=== PATIENT | female | born 1985 | race American Indian/Alaskan Native ===

== ENCOUNTER 2021-10-22 12:27 | Emergency (ER) | payer OTHER ==
--- NOTE | 2021-10-22 13:08 | Emergency Department Report ---
ED General Adult HPI - General Chief complaint: Recheck/Abnormal Lab/Rx Stated complaint: My doctor sent me here Time Seen by Provider: 10/22/21 12:51 Source: patient, RN notes reviewed Mode of arrival: Ambulatory Limitations: No Limitations - History of Present Illness Initial comments: Primary CARE doctor: Dr. Antonio Lu; [facility] Primary care The patient is a pleasant 36-year-old female who reports no chronic medical conditions, who presents to the ER at the recommendation of her nurse for her primary care doctor. 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 She reports that she had laboratory studies drawn, which demonstrated low blood counts, and she was referred to the emergency room for evaluation and possible blood transfusion. The patient endorses chronic heavy menstruation, for years, and reports that she has no physical pain at this time. She denies hematemesis and bright red blood per rectum. She has mild shortness of breath on exertion for months. The patient denies headache, neck pain, chest pain, abdominal pain, vomiting, diaphoresis, possibility of . She denies posterior leg pain and leg swelling. She has not seen a account manager employee benefits for approximately 3 years. She sees her primary care doctor once a year by her history. During the history and physical examination I am chaperoned by Angelina Nelson -: month(s), year(s) Severity scale (0 -10): 0 Improves with: rest Worsens with: movement - Related Data Previous Rx's Medication Instructions Recorded Last Taken Type Ferrous Sulfate [Iron 325 MG] 325 mg PO TID #90 tab 10/22/21 Unknown Rx Allergies Allergy/AdvReac Type Severity Reaction Status Date / Time No Known Allergies Allergy Verified 10/22/21 12:37 ED Review of Systems ROS: Stated complaint: EMERGENCY BLOOD TRANSFUSION Other details as noted in HPI Constitutional: denies: fever Eyes: denies: eye discharge ENT: denies: congestion Respiratory: shortness of breath Cardiovascular: denies: chest pain Gastrointestinal: denies: abdominal pain, hematemesis, melena, hematochezia Genitourinary: abnormal menses (Heavy menstruation) Neurological: denies: weakness ED Past Medical Hx - Past Medical History Previous Medical History?: No - Surgical History Past Surgical History?: No - Medications Home Medications: Home Medications Medication Instructions Recorded Confirmed Last Taken Type Ferrous Sulfate [Iron 325 MG] 325 mg PO TID #90 tab 10/22/21 Unknown Rx ED Physical Exam - General Limitations: No Limitations General appearance: alert, in no apparent distress - Head Head exam: Present: atraumatic, normocephalic - Eye Eye exam: Present: normal appearance, EOMI, other (There is very mild pallor of the conjunctiva). Absent: nystagmus - ENT ENT exam: Present: normal exam, normal orophraynx, mucous membranes moist, normal external ear exam - Neck Neck exam: Present: normal inspection, full ROM. Absent: tenderness, meningismus - Respiratory Respiratory exam: Present: normal lung sounds bilaterally. Absent: respiratory distress, wheezes, rales, rhonchi, stridor, decreased breath sounds - Cardiovascular Cardiovascular Exam: Present: regular rate, normal rhythm, normal heart sounds. Absent: bradycardia, tachycardia, irregular rhythm, systolic murmur, diastolic murmur, rubs, gallop - GI/Abdominal GI/Abdominal exam: Present: soft. Absent: distended, tenderness, guarding, rebound, rigid, pulsatile mass - Extremities Exam Extremities exam: Present: normal inspection, full ROM, normal capillary refill, other (2+ pulses noted in the bilateral upper and lower extremities. There is no palpable cord. negative Homans sign. Muscular compartments are soft. The pelvis is stable.). Absent: pedal edema, calf tenderness - Back Exam Back exam: Present: normal inspection, full ROM. Absent: tenderness, CVA tenderness (R), CVA tenderness (L), paraspinal tenderness, vertebral tenderness - Neurological Exam Neurological exam: Present: alert, oriented X3, normal gait, other (No facial droop. Tongue midline. Extraocular movements intact bilaterally. Facial sensation intact to light touch in V1, V2, V3 distribution bilaterally. 5 and a 5 strength in 4 extremities. Sensation intact to light touch in 4 extremities.). Absent: motor sensory deficit - Psychiatric Psychiatric exam: Present: normal affect, normal mood - Skin Skin exam: Present: warm, dry, intact, normal color. Absent: rash ED Course Vital Signs 10/22/21 10/22/21 12:41 12:45 Temperature 98.6 F Pulse Rate 78 Respiratory 18 18 Rate Blood Pressure 118/65 [Right] O2 Sat by Pulse 100 100 Oximetry - Reevaluation(s) Reevaluation #1: 10/22/21 13:15 Differential diagnosis, including but not limited to: Iron deficiency anemia, laboratory error, encounter for medical screening examination Assessment and plan: 36-year-old female, who is afebrile, with reassuring vital signs, in no acute distress, hemodynamically stable, ambulatory with a steady gait, presenting to the ER for possible blood transfusion, after having laboratory studies drawn by her primary care doctor, found to demonstrate anemia. The symptoms have been going on for months and for years. The patient is not emergently decompensated at this time. I advised the patient's that we would be happy to check her laboratory studies, and I did further advised the patient that if she required and requested, we would be happy to provide a packed red blood cell transfusion, but I also advised the patient that given duration of symptoms, and lack of emergent medical decompensation at this time, it would be reasonable to consider alternative therapies, including iron sulfate supplementation, iron infusion, and outpatient follow-up. The patient is agreeable at this time, we will obtain appropriate laboratory studies, EKG, and reassess. Patient has also provided consent to discuss the details of her care with her primary care physician. 10/22/21 14:09 Laboratory studies demonstrate microcytic anemia, normal coagulation profile, negative test as expected. Have revisited discussion with patient. Through shared decision making, and patient articulated preference, patient prefers to not have packed red blood cell transfusion at this time which I think is reasonable. Start iron sulfate supplementation, discussed diet lifestyle modifications, will need to follow-up with outpatient hematology to consider/pursue outpatient iron infusions, should also follow-up with an outpatient SCREEN MACHINE OPERATOR physician for history of heavy menstruation. As a courtesy and as per the patient's request, we will discussed with her primary care doctor, Dr. Antonio Lu Reevaluation #2: 10/22/21 14:17 I discussed the patient's history, physical, laboratory studies and clinical impression with her primary care doctor, Dr. Lu He is in agreement with the plan of care, and endorsed understanding. He also reports that his group typically coordinate with a gallery or museum technician by the name of Dr. Silverman, his office will reach out to this gallery or museum technician. s Reevaluation #3: 10/22/21 14:50 Renal and hepatic tests unremarkable. Iron studies suggestive of iron deficiency anemia. Patient reliable to follow-up as an outpatient. Return precautions reviewed ED Medical Decision Making - Lab Data Result diagrams: 10/22/21 12:49 10/22/21 12:49 Vital Signs 10/22/21 10/22/21 12:41 12:45 Temperature 98.6 F Pulse Rate 78 Respiratory 18 18 Rate Blood Pressure 118/65 [Right] O2 Sat by Pulse 100 100 Oximetry Lab Results 10/22/21 10/22/21 10/22/21 Range/Units 12:49 12:49 12:49 WBC 2.9 L (4.5-11.0) K/mm3 RBC 3.35 L (3.65-5.03) M/mm3 Hgb 5.5 L* (10.1-14.3) gm/dl Hct 19.8 L* (30.3-42.9) % MCV 59 L (79-97) fl MCH 16 L (28-32) pg MCHC 28 L (30-34) % RDW 22.2 H (13.2-15.2) % Plt Count 244 (140-440) K/mm3 Lymph % (Auto) [facility] [place] % (Auto) [facility] Seg Neutrophils % [facility] PT 13.7 (12.2-14.9) Sec. INR 0.95 (0.87-1.13) APTT 25.3 (24.2-36.6) Sec. HCG, Qual Negative (Negative) Blood Type Antibody Screen 10/22/21 Range/Units 12:49 WBC (4.5-11.0) K/mm3 RBC (3.65-5.03) M/mm3 Hgb (10.1-14.3) gm/dl Hct (30.3-42.9) % MCV (79-97) fl MCH (28-32) pg MCHC (30-34) % RDW (13.2-15.2) % Plt Count (140-440) K/mm3 Lymph % (Auto) [place] % (Auto) Seg Neutrophils % PT (12.2-14.9) Sec. INR (0.87-1.13) APTT (24.2-36.6) Sec. HCG, Qual (Negative) Blood Type O POSITIVE Antibody Screen Negative Lab Results 10/22/21 10/22/21 10/22/21 Range/Units 12:49 12:49 12:49 WBC 2.9 L (4.5-11.0) K/mm3 RBC 3.35 L (3.65-5.03) M/mm3 Hgb 5.5 L* (10.1-14.3) gm/dl Hct 19.8 L* (30.3-42.9) % MCV 59 L (79-97) fl MCH 16 L (28-32) pg MCHC 28 L (30-34) % RDW 22.2 H (13.2-15.2) % Plt Count 244 (140-440) K/mm3 Lymph % (Auto) [facility] [facility] [place] % (Auto) [facility] Add Manual Diff Complete Total Counted 100 Seg Neutrophils % [facility] Seg Neuts % (Manual) 42.0 (40.0-70.0) % Band Neutrophils % 0 % Lymphocytes % (Manual) 45.0 H (13.4-35.0) % Reactive Lymphs % (Man) 0 % Monocytes % (Manual) 10.0 H (0.0-7.3) % Eosinophils % (Manual) 1.0 (0.0-4.3) % Basophils % (Manual) 2.0 H (0.0-1.8) % Metamyelocytes % 0 % Myelocytes % 0 % Promyelocytes % 0 % Blast Cells % 0 % Nucleated RBC % Not Reportable Seg Neutrophils # Man 1.2 L (1.8-7.7) K/mm3 Band Neutrophils # 0.0 K/mm3 Lymphocytes # (Manual) 1.3 (1.2-5.4) K/mm3 Abs React Lymphs (Man) 0.0 K/mm3 Monocytes # (Manual) 0.3 (0.0-0.8) K/mm3 Eosinophils # (Manual) 0.0 (0.0-0.4) K/mm3 Basophils # (Manual) 0.1 (0.0-0.1) K/mm3 Metamyelocytes # 0.0 K/mm3 Myelocytes # 0.0 K/mm3 Promyelocytes # 0.0 K/mm3 Blast Cells # 0.0 K/mm3 WBC Morphology Not Reportable Hypersegmented Neuts Not Reportable Hyposegmented Neuts Not Reportable Hypogranular Neuts Not Reportable Smudge Cells Not Reportable Toxic Granulation Not Reportable Toxic Vacuolation Not Reportable Dohle Bodies Not Reportable Pelger-Huet Anomaly Not Reportable Apoorva Rods Not Reportable Platelet Estimate Consistent w auto Clumped Platelets Not Reportable Plt Clumps, EDTA Not Reportable Large Platelets Not Reportable Giant Platelets Not Reportable Platelet Satelliting Not Reportable Plt Morphology Comment Not Reportable RBC Morphology Not Reportable Dimorphic RBCs Not Reportable Polychromasia Not Reportable Hypochromasia 3+ Poikilocytosis 2+ Anisocytosis 1+ Microcytosis 2+ Macrocytosis Not Reportable Spherocytes Not Reportable Pappenheimer Bodies Not Reportable Sickle Cells Not Reportable Target Cells Not Reportable Tear Drop Cells Few Ovalocytes Few Helmet Cells Rare [place] Bodies Not Reportable [place] Not Reportable Suzy Cells 1+ Bite Cells Not Reportable Crenated Cell Not Reportable Elliptocytes Few Acanthocytes (Spur) Not Reportable Rouleaux Not Reportable Hemoglobin C Crystals Not Reportable Schistocytes Rare Malaria parasites Not Reportable Rolan Bodies Not Reportable Hem Pathologist Commnt No PT 13.7 (12.2-14.9) Sec. INR 0.95 (0.87-1.13) APTT 25.3 (24.2-36.6) Sec. Sodium 137 (137-145) mmol/L Potassium 4.4 (3.6-5.0) mmol/L Chloride 103.8 (98-107) mmol/L Carbon Dioxide 21 L (22-30) mmol/L Anion Gap 17 mmol/L BUN 11 (7-17) mg/dL Creatinine 0.6 (0.6-1.2) mg/dL Estimated GFR > 60 ml/min BUN/Creatinine Ratio 18 % Glucose 97 (65-100) mg/dL Calcium 9.1 (8.4-10.2) mg/dL Iron (37-170) ug/dL TIBC (250-450) mcg/dL Ferritin (10.0-200.0) ng/mL Total Bilirubin 0.20 (0.1-1.2) mg/dL AST 15 (5-40) units/L ALT 8 (7-56) units/L Alkaline Phosphatase 53 (35-129) units/L Total Protein 8.2 (6.3-8.2) g/dL Albumin 4.4 (3.9-5) g/dL Albumin/Globulin Ratio 1.2 % HCG, Qual (Negative) Blood Type Antibody Screen 10/22/21 10/22/21 10/22/21 Range/Units 12:49 12:49 12:49 WBC (4.5-11.0) K/mm3 RBC (3.65-5.03) M/mm3 Hgb (10.1-14.3) gm/dl Hct (30.3-42.9) % MCV (79-97) fl MCH (28-32) pg MCHC (30-34) % RDW (13.2-15.2) % Plt Count (140-440) K/mm3 Lymph % (Auto) [place] % (Auto) Add Manual Diff Total Counted Seg Neutrophils % Seg Neuts % (Manual) (40.0-70.0) % Band Neutrophils % % Lymphocytes % (Manual) (13.4-35.0) % Reactive Lymphs % (Man) % Monocytes % (Manual) (0.0-7.3) % Eosinophils % (Manual) (0.0-4.3) % Basophils % (Manual) (0.0-1.8) % Metamyelocytes % % Myelocytes % % Promyelocytes % % Blast Cells % % Nucleated RBC % Seg Neutrophils # Man (1.8-7.7) K/mm3 Band Neutrophils # K/mm3 Lymphocytes # (Manual) (1.2-5.4) K/mm3 Abs React Lymphs (Man) K/mm3 Monocytes # (Manual) (0.0-0.8) K/mm3 Eosinophils # (Manual) (0.0-0.4) K/mm3 Basophils # (Manual) (0.0-0.1) K/mm3 Metamyelocytes # K/mm3 Myelocytes # K/mm3 Promyelocytes # K/mm3 Blast Cells # K/mm3 WBC Morphology Hypersegmented Neuts Hyposegmented Neuts Hypogranular Neuts Smudge Cells Toxic Granulation Toxic Vacuolation Dohle Bodies Pelger-Huet Anomaly Apoorva Rods Platelet Estimate Clumped Platelets Plt Clumps, EDTA Large Platelets Giant Platelets Platelet Satelliting Plt Morphology Comment RBC Morphology Dimorphic RBCs Polychromasia Hypochromasia Poikilocytosis Anisocytosis Microcytosis Macrocytosis Spherocytes Pappenheimer Bodies Sickle Cells Target Cells Tear Drop Cells Ovalocytes Helmet Cells [place] Bodies [place] Suzy Cells Bite Cells Crenated Cell Elliptocytes Acanthocytes (Spur) Rouleaux Hemoglobin C Crystals Schistocytes Malaria parasites Rolan Bodies Hem Pathologist Commnt PT (12.2-14.9) Sec. INR (0.87-1.13) APTT (24.2-36.6) Sec. Sodium (137-145) mmol/L Potassium (3.6-5.0) mmol/L Chloride (98-107) mmol/L Carbon Dioxide (22-30) mmol/L Anion Gap mmol/L BUN (7-17) mg/dL Creatinine (0.6-1.2) mg/dL Estimated GFR ml/min BUN/Creatinine Ratio % Glucose (65-100) mg/dL Calcium (8.4-10.2) mg/dL Iron 10 L (37-170) ug/dL TIBC 404 (250-450) mcg/dL Ferritin (10.0-200.0) ng/mL Total Bilirubin (0.1-1.2) mg/dL AST (5-40) units/L ALT (7-56) units/L Alkaline Phosphatase (35-129) units/L Total Protein (6.3-8.2) g/dL Albumin (3.9-5) g/dL Albumin/Globulin Ratio % HCG, Qual Negative (Negative) Blood Type O POSITIVE Antibody Screen Negative 10/22/21 Range/Units 12:49 WBC (4.5-11.0) K/mm3 RBC (3.65-5.03) M/mm3 Hgb (10.1-14.3) gm/dl Hct (30.3-42.9) % MCV (79-97) fl MCH (28-32) pg MCHC (30-34) % RDW (13.2-15.2) % Plt Count (140-440) K/mm3 Lymph % (Auto) [place] % (Auto) Add Manual Diff Total Counted Seg Neutrophils % Seg Neuts % (Manual) (40.0-70.0) % Band Neutrophils % % Lymphocytes % (Manual) (13.4-35.0) % Reactive Lymphs % (Man) % Monocytes % (Manual) (0.0-7.3) % Eosinophils % (Manual) (0.0-4.3) % Basophils % (Manual) (0.0-1.8) % Metamyelocytes % % Myelocytes % % Promyelocytes % % Blast Cells % % Nucleated RBC % Seg Neutrophils # Man (1.8-7.7) K/mm3 Band Neutrophils # K/mm3 Lymphocytes # (Manual) (1.2-5.4) K/mm3 Abs React Lymphs (Man) K/mm3 Monocytes # (Manual) (0.0-0.8) K/mm3 Eosinophils # (Manual) (0.0-0.4) K/mm3 Basophils # (Manual) (0.0-0.1) K/mm3 Metamyelocytes # K/mm3 Myelocytes # K/mm3 Promyelocytes # K/mm3 Blast Cells # K/mm3 WBC Morphology Hypersegmented Neuts Hyposegmented Neuts Hypogranular Neuts Smudge Cells Toxic Granulation Toxic Vacuolation Dohle Bodies Pelger-Huet Anomaly Apoorva Rods Platelet Estimate Clumped Platelets Plt Clumps, EDTA Large Platelets Giant Platelets Platelet Satelliting Plt Morphology Comment RBC Morphology Dimorphic RBCs Polychromasia Hypochromasia Poikilocytosis Anisocytosis Microcytosis Macrocytosis Spherocytes Pappenheimer Bodies Sickle Cells Target Cells Tear Drop Cells Ovalocytes Helmet Cells [place] Bodies [place] Suzy Cells Bite Cells Crenated Cell Elliptocytes Acanthocytes (Spur) Rouleaux Hemoglobin C Crystals Schistocytes Malaria parasites Rolan Bodies Hem Pathologist Commnt PT (12.2-14.9) Sec. INR (0.87-1.13) APTT (24.2-36.6) Sec. Sodium (137-145) mmol/L Potassium (3.6-5.0) mmol/L Chloride (98-107) mmol/L Carbon Dioxide (22-30) mmol/L Anion Gap mmol/L BUN (7-17) mg/dL Creatinine (0.6-1.2) mg/dL Estimated GFR ml/min BUN/Creatinine Ratio % Glucose (65-100) mg/dL Calcium (8.4-10.2) mg/dL Iron (37-170) ug/dL TIBC (250-450) mcg/dL Ferritin 2.2 L (10.0-200.0) ng/mL Total Bilirubin (0.1-1.2) mg/dL AST (5-40) units/L ALT (7-56) units/L Alkaline Phosphatase (35-129) units/L Total Protein (6.3-8.2) g/dL Albumin (3.9-5) g/dL Albumin/Globulin Ratio % HCG, Qual (Negative) Blood Type Antibody Screen - EKG Data -: EKG Interpreted by Me EKG shows normal: sinus rhythm Rate: normal - EKG Data 10/22/21 14:12 The EKG is interpreted at 13: 31 Sinus rhythm, rate 66 bpm. Normal axis, normal intervals, unremarkable EKG, not a STEMI Critical care attestation.: If time is entered above; I have spent that time in minutes in the direct care of this critically ill patient, excluding procedure time. ED Disposition Clinical Impression: Heavy menses, Microcytic anemia, Negative test Disposition: 01 HOME / SELF CARE / HOMELESS Is pt being admited?: No Does the pt Need Aspirin: No Condition: Stable Instructions: Preventing Iron Deficiency Anemia, Adult Additional Instructions: Patient is found to have microcytic anemia, likely iron deficiency anemia, likely secondary to chronic heavy periods and menstruation. Increase consumption of green leafy vegetables, protein, red meat, fish, beef and chicken. Follow-up with an outpatient gallery or museum technician, such as Dr. Medrano, for evaluation for outpatient iron infusions. Recommend follow-up within the next 2 weeks. Follow-up with an outpatient account manager employee benefits, such as those at my [facility] for heavy menstruation, within the next 2 weeks. Follow-up with your primary care doctor within the next 4 to 6 weeks. Iron sulfate tablets will be prescribed, this medication may cause cramping, constipation, black tarry stools. Please return to the emergency room right away with new pain, worsened pain, migration of pain, projectile vomiting, change in mental status, confusion, inability tolerate liquid feeds, new, worsened or different symptoms not present on the initial emergency room evaluation Prescriptions: Ferrous Sulfate [Iron 325 MG] 325 mg PO TID #90 tab Referrals: [facility] [Provider Group] - 3-5 Days EMIR MEDRANO MD [Staff Physician] - 3-5 Days
[2021-10-22 13:33] LABS: INR 0.95 (0.87-1.13)
[2021-10-22 13:34] LABS: Partial Thromboplastin Time 25.3 Sec. (24.2-36.6)
[2021-10-22 13:43] LABS: Mean Corpuscular HGB Conc 28 % (30-34); Platelet Count 244 K/mm3 (140-440); Red Blood Count 3.35 M/mm3 (3.65-5.03)
[2021-10-22 13:46] LABS: Hematocrit 19.8 % (30.3-42.9); Hemoglobin 5.5 gm/dl (10.1-14.3); Mean Corpuscular Volume 59 fl (79-97); Red Cell Distribution Width 22.2 % (13.2-15.2)
[2021-10-22 14:16] LABS: Alanine Aminotransferase 8 units/L (7-56); Albumin 4.4 g/dL (3.9-5); BUN/Creatinine Ratio 18; Blood Urea Nitrogen 11 mg/dL (7-17); Calcium 9.1 mg/dL (8.4-10.2); Hemolysis Index 0
[2021-10-22 14:18] LABS: Total Cells Counted 100
[2021-10-22 14:19] LABS: Anisocytosis 1+; Burr Cells 1+; Hypochromasia 3+; Poikilocytosis 2+
[2021-10-22 14:20] LABS: Helmet Cells Rare; Ovalocytes Few; Schistocytes Rare; Tear Drop Cells Few
[2021-10-22 14:21] LABS: Platelet Estimate Consistent w Auto
[2021-10-22 14:22] LABS: Iron 10 ug/dL (37-170); Total Iron Binding Capacity 404 mcg/dL (250-450)
[2021-10-22 15:32] VITALS: BP 120/52
--- NOTE | 2021-10-23 10:54 | Electrocardiograph Report ---
[facility] Test Date: 2021-10-22 Test Time: 13:31:45 Pat Name: TARIQ CASTLE Department: Room: Gender: F Adjutant General: DANNY : 1985 Requested By: DOMINGUEZ MEDINA Order Number: [id number] Reading MD: Alejandro Quiros Measurements Intervals [place] Rate: 66 P: 41 [place]: 138 QRS: 17 QRSD: 82 T: 33 QT: 408 QTc: 429 Interpretive Statements Sinus rhythm No previous ECG available for comparison Electronically Signed On 10-23-2021 10:53:54 EDT by Alejandro Quiros
== END 2021-10-22 15:30 | disposition home or self-care (01) ==
LOC: ED 12:27
DX: N92.0 Excessive and frequent menstruation with regular cycle (principal); D50.9 Iron deficiency anemia, unspecified; Z32.02 Encounter for pregnancy test, result negative
CPT/HCPCS: 36415; 80053; 82728; 83550; 84703; 85007; 85025; 85610; 85730; 86850; 86900; 86901; 93005; 99283